=== PATIENT | male | born 1990 | race Hispanic/Latino ===

== ENCOUNTER 2019-09-27 21:34 | Emergency (ER) | payer SELFPAY ==
[2019-09-27] MEDS ORDERED: NA CHLORIDE 0.9% 1,000 ML ONE (22:10)
[2019-09-27 22:26] LABS: Absolute Lymphocytes (CBC) 3.6 K/uL (0.7-4.9); Basophils % 0.4 % (0-1.3); Hematocrit 44.8 % (39.6-49.0); Lymphocytes % 36.5 % (15.3-44.8); MPV 8.1 fL (7.6-11.3); RBC Red Blood Cell Count 5.15 M/uL (4.33-5.43)
[2019-09-27 22:41] LABS: BUN Blood Urea Nitrogen 12 mg/dL (7-18); Bicarbonate 26 mmol/L (21-32); Glucose Level 96 mg/dL (74-106); Magnesium 2.2 mg/dL (1.8-2.4); Potassium 3.2 mmol/L (3.5-5.1); Sodium Level 141 mmol/L (136-145); Troponin (Emerg Dept Use Only) < 0.02 ng/mL (0.0-0.045)
--- NOTE | 2019-09-27 23:54 | EDPHYS ---
Physician Documentation [facility] Name: Robert Spicer Age: 29 yrs Sex: Male : 1990 Arrival Date: 09/27/2019 Time: 21:35 Bed 7 Private MD: ED Physician Michael Perry HPI: 09/27 23:12 This 29 yrs old Male presents to ER via Wheelchair with complaints of Passed rn Out Prior To Arrival, Shortness Of Breath. 23:12 This 29 yrs old Male presents to ER via Wheelchair with complaints of Passed rn Out Prior To Arrival. 23:12 The patient has experienced syncope. Onset: The symptoms/episode began/occurred just rn prior to arrival. Duration: This was a single episode. Associated injury: The patient did not suffer any apparent associated injury. Current symptoms: Currently, the patient is not experiencing any symptoms. The patient has experienced a previous episode. The patient has not recently seen a physician. REports got up to use bathroom, felt lightheaded, thinks passed, out, felt generalized weakness, no focal trauma from fall, used to be on seizure meds for similar episode in past, told has epilepsy, but off medication for about a year now after slow wean and no further episodes. Family states last time this happened was told had a seizure after abnormal EEG and negative workup otherwise. NO chest pain/sob/abd pain/ vomiting/diarrhea.. Historical: - Allergies: 22:11 No Known Allergies; ea - Home Meds: 22:11 None [Active]; ea - PMHx: 22:11 sizures; ea - PSHx: 22:11 None; ea - Immunization history:: Adult Immunizations up to date. - Social history:: Smoking status: Patient/guardian denies using tobacco. - Ebola Screening: : No symptoms or risks identified at this time. - Family history:: not pertinent. - Hospitalizations: : No recent hospitalization is reported. ROS: 23:12 Constitutional: Negative for fever, chills, and weight loss, Eyes: Negative for injury, rn pain, redness, and discharge, Neck: Negative for injury, pain, and swelling, Cardiovascular: Negative for chest pain, palpitations, and edema, Respiratory: Negative for shortness of breath, cough, wheezing, and pleuritic chest pain, Abdomen/GI: Negative for abdominal pain, nausea, vomiting, diarrhea, and constipation, Back: Negative for injury and pain, : Negative for injury, bleeding, discharge, and swelling, MS/Extremity: Negative for injury and deformity, Skin: Negative for injury, rash, and discoloration, Neuro: Negative for headache, weakness, numbness, tingling Exam: 23:12 Constitutional: This is a well developed, well nourished patient who is awake, alert, rn and in no acute distress. Head/Face: Normocephalic, atraumatic. Eyes: Pupils equal round and reactive to light, extra-ocular motions intact. Lids and lashes normal. Conjunctiva and sclera are non-icteric and not injected. Cornea within normal limits. Periorbital areas with no swelling, redness, or edema. ENT: MMM Neck: Trachea midline, no thyromegaly or masses palpated, and no cervical lymphadenopathy. Supple, full range of motion without nuchal rigidity, or vertebral point tenderness. No Meningismus. Cardiovascular: Regular rate and rhythm. No pulse deficits. Respiratory: No increased work of breathing, no retractions or nasal flaring. Abdomen/GI: soft, non-tender Back: No spinal tenderness. No costovertebral tenderness. Full range of motion. MS/ Extremity: Pulses equal, no cyanosis. Neurovascular intact. Full, normal range of motion. Equal circumference. Neuro: Awake and alert, GCS 15, oriented to person, place, time, and situation. Cranial nerves II-XII grossly intact. Motor strength 5/5 in all extremities. Sensory grossly intact. Cerebellar exam normal. Vital Signs: 22:09 BP 115 / 77; Pulse 61; Resp 18; Temp 98; Pulse Ox 100% ; Weight 83.91 kg; Height 5 ft. ea 9 in. (175.26 cm); 23:30 BP 113 / 64; Pulse 59; Resp 18; Pulse Ox 100% ; ea 09/28 00:00 BP 112 / 67; Pulse 79; Resp 18; Pulse Ox 99% on R/A; ea 09/27 22:09 Body Mass Index 27.32 (83.91 kg, 175.26 cm) ea MDM: 09/27 21:41 Patient medically screened. rn 23:48 Differential Diagnosis: cardiac arrhythmia, idiopathic syncope, seizure, vasovagal rn episode. Data reviewed: vital signs, nurses notes, lab test result(s), EKG, radiologic studies, CT scan, plain films, and as a result, I will discharge patient. Counseling: I had a detailed discussion with the patient and/or guardian regarding: the historical points, exam findings, and any diagnostic results supporting the discharge/admit diagnosis, lab results, radiology results, the need for outpatient follow up, to return to the emergency department if symptoms worsen or persist or if there are any questions or concerns that arise at home. Response to treatment: the patient's symptoms have markedly improved after treatment, the patient's condition has returned to base line, patient is well hydrated. and as a result, I will discharge patient. Special discussion: I discussed with the patient/guardian in detail that at this point there is no indication for admission to the hospital. It is understood, however, that if the symptoms persist or worsen the patient needs to return immediately for re-evaluation. Based on the history and exam findings, there is no indication for further emergent testing or inpatient evaluation. I discussed with the patient/guardian the need to see the neurologist for further evaluation of the symptoms. ED course: Pt improved, near baseline, reports when has these episodes in past feels drowsy and nauseous with anxiousness. Most likely had another seizure given similar symptoms in past and off meds for 1 year. Spoke with patient regarding restarting medication/keppra and neuro f/u, patient agrees and will restart for now. Neg cardiac w/u, and no acute findings in bloodwork, no acute findings on ct head. . 09/27 21:59 Order name: Basic Metabolic Panel; Complete Time: 22:52 rn 09/27 21:59 Order name: CBC with Diff; Complete Time: 22:52 rn 09/27 21:59 Order name: CT Head Brain wo Cont rn 09/27 21:59 Order name: Magnesium; Complete Time: 22:52 rn 09/27 21:59 Order name: Troponin (emerg Dept Use Only); Complete Time: 22:52 rn 09/27 21:59 Order name: XRAY Chest (1 view) rn 09/27 21:59 Order name: EKG; Complete Time: 22:00 rn 09/27 21:59 Order name: Cardiac monitoring; Complete Time: 22: rn 09/27 21:59 Order name: EKG - Nurse/Tech; Complete Time: 22: rn 09/27 21:59 Order name: IV Saline Lock; Complete Time: 22: rn 09/27 21:59 Order name: Labs collected and sent; Complete Time: : rn 09/27 21:59 Order name: NPO; Complete Time: 22: rn 09/27 21:59 Order name: O2 Per Protocol; Complete Time: 22: rn 09/27 21:59 Order name: O2 Sat Monitoring; Complete Time: : rn Administered Medications: 22:27 Drug: NS 0.9% 1000 ml Route: IV; Rate: 1000 ml; Site: right antecubital; ea 09/28 00:13 Follow up: Response: No adverse reaction; IV Status: Completed infusion; IV Intake: ea 1000ml 09/27 23:55 Drug: Keppra 1000 mg Route: PO; ea 09/28 00:09 Follow up: Response: Medication administered at discharge. ea 09/27 23:55 Drug: Zofran 4 mg Route: IVP; Site: right antecubital; ea 09/28 00:09 Follow up: Response: Medication administered at discharge. ea Disposition: 09/27/19 23:52 Discharged to Home. Impression: Epilepsy and recurrent seizures, Syncope and collapse. - Condition is Stable. - Discharge Instructions: Seizure, Adult, Syncope. - Prescriptions for Keppra 500 mg Oral Tablet - take 1 tablet by ORAL route every 12 hours; 60 tablet. - Medication Reconciliation Form, Thank You Letter, Antibiotic Education, Prescription Opioid Use, Work release form form. - Follow up: Ketan Arriola MD; When: As needed; Reason: Further diagnostic work-up, Recheck today's complaints, Continuance of care, Re-evaluation by your physician. - Problem is new. - Symptoms have improved. Signatures: Dispatcher [employer] Michael Jimenez MD MD rn Antunez, Elena, RN RN ea Corrections: (The following items were deleted from the chart) 00:13 09/27 23:52 09/27/2019 23:52 Discharged to Home. Impression: Epilepsy and recurrent ea seizures; Syncope and collapse. Condition is Stable. Forms are Medication Reconciliation Form, Thank You Letter, Antibiotic Education, Prescription Opioid Use. Follow up: Ketan Arriola; When: As needed; Reason: Further diagnostic work-up, Recheck today's complaints, Continuance of care, Re-evaluation by your physician. Problem is new. Symptoms have improved. rn
--- NOTE | 2019-09-27 23:54 | ER ---
Nurse's Notes [facility] Name: Robert Spicer Age: 29 yrs Sex: Male : 1990 Arrival Date: 09/27/2019 Time: 21:35 Bed 7 Private MD: Diagnosis: Epilepsy and recurrent seizures;Syncope and collapse Presentation: 09/27 21:41 Presenting complaint: Patient states: He got up to go to the bathroom, when he finished aj1 he felt dizzy and passed out. When he woke up he still felt dizzy, on the way here he started feeling very anxious and breathing fast. Now he has numbness around his mouth and his hands "stiffened up" States that he had the same thing happen last year, states that he was seen in the ER but they didn't find anything. Patient's states that in [place] they did an EEG and was prescribed seizure medicines, but he was still taking those medicines the last time this happened. Transition of care: patient was not received from another setting of care. Onset of symptoms was September 27, 2019. Risk Assessment: Do you want to hurt yourself or someone else? Patient reports no desire to harm self or others. Initial Sepsis Screen: Does the patient meet any 2 criteria? No. Patient's initial sepsis screen is negative. Does the patient have a suspected source of infection? No. Patient's initial sepsis screen is negative. Care prior to arrival: None. 21:41 Method Of Arrival: Wheelchair aj1 21:41 Acuity: WILLEM 3 aj1 Historical: - Allergies: 22:11 No Known Allergies; ea - Home Meds: 22:11 None [Active]; ea - PMHx: 22:11 sizures; ea - PSHx: 22:11 None; ea - Immunization history:: Adult Immunizations up to date. - Social history:: Smoking status: Patient/guardian denies using tobacco. - Ebola Screening: : No symptoms or risks identified at this time. - Family history:: not pertinent. - Hospitalizations: : No recent hospitalization is reported. Screenin:09 Abuse screen: Denies threats or abuse. Nutritional screening: No deficits noted. ea Tuberculosis screening: No symptoms or risk factors identified. Fall Risk None identified. Assessment: 22:11 General: Appears in no apparent distress. Behavior is calm, cooperative, appropriate ea for age. Pain: Denies pain. Neuro: Level of Consciousness is awake, alert, obeys commands, Oriented to person, place, situation. Cardiovascular: Patient's skin is warm and dry. Respiratory: Airway is patent Respiratory effort is even, unlabored, Respiratory pattern is regular, symmetrical, Breath sounds are clear bilaterally. Derm: Skin is pink, warm \\T\\ dry. 23:07 Reassessment: Patient and/or family updated on plan of care and expected duration. Pain ea level reassessed. Patient is alert, oriented x 3, equal unlabored respirations, skin warm/dry/pink. 09/28 00:10 Reassessment: Patient and/or family updated on plan of care and expected duration. Pain ea level reassessed. Patient is alert, oriented x 3, equal unlabored respirations, skin warm/dry/pink. Discharge instruction given to patient, verbalized the understanding of instruction. Pt left ED ambulatory accompanied by family. Vital Signs: 09/27 22:09 BP 115 / 77; Pulse 61; Resp 18; Temp 98; Pulse Ox 100% ; Weight 83.91 kg; Height 5 ft. ea 9 in. (175.26 cm); 23:30 BP 113 / 64; Pulse 59; Resp 18; Pulse Ox 100% ; ea 09/28 00:00 BP 112 / 67; Pulse 79; Resp 18; Pulse Ox 99% on R/A; ea 09/27 22:09 Body Mass Index 27.32 (83.91 kg, 175.26 cm) ea ED Course: 09/27 21:35 Patient arrived in ED. cf2 21:41 Michael Perry MD is Attending Physician. rn 21:41 Malinda Siegel RN is Primary Nurse. ea 21:47 Triage completed. aj1 22:10 Arm band placed on right wrist. Patient placed in an exam room, on a stretcher, on ea pulse oximetry. EKG completed in triage. Results shown to MD. 22:11 Patient has correct armband on for positive identification. Bed in low position. Call ea light in reach. Side rails up X2. 22:12 Inserted saline lock: 20 gauge in right antecubital area, using aseptic technique. ea Blood collected. 22:18 CT Head Brain wo Cont In Process Unspecified. EDMS 22:27 XRAY Chest (1 view) In Process Unspecified. EDMS 23:52 Ketan Arriola MD is Referral Physician. rn 23:55 IV discontinued, intact, bleeding controlled, No redness/swelling at site. Pressure ea dressing applied. 09/28 00:11 No provider procedures requiring assistance completed. ea Administered Medications: 09/27 22:27 Drug: NS 0.9% 1000 ml Route: IV; Rate: 1000 ml; Site: right antecubital; ea 09/28 00:13 Follow up: Response: No adverse reaction; IV Status: Completed infusion; IV Intake: ea 1000ml 09/27 23:55 Drug: Keppra 1000 mg Route: PO; ea 09/28 00:09 Follow up: Response: Medication administered at discharge. ea 09/27 23:55 Drug: Zofran 4 mg Route: IVP; Site: right antecubital; ea 09/28 00:09 Follow up: Response: Medication administered at discharge. ea Intake: 00:13 IV: 1000ml; Total: 1000ml. ea Outcome: 09/27 23:52 Discharge ordered by . rn 09/28 00:11 Discharged to home ambulatory, with family. ea Condition: stable Discharge instructions given to patient, Instructed on discharge instructions, follow up and referral plans. medication usage, Demonstrated understanding of instructions, follow-up care, medications, Prescriptions given X 1. 00:13 Patient left the ED. ea Signatures: Dispatcher [employer] Anne Powers, RN JUANJO aj1 Michael Perry MD MD rn Antunez, Elena, RN RN ea Frazier, Celesta cf2
[2019-09-27] MEDS ORDERED: levETIRAcetam 500 MG TAB ONE (23:58)
[2019-09-27] MEDS ORDERED: ONDANSETRON 4 MG/2 ML VIAL ONE (23:58)
[2019-09-28 00:43] VITALS: TEMP 98
[2019-09-28 00:45] VITALS: BP 112/67; O2SAT 99
--- NOTE | 2019-09-28 06:45 | EKG ---
Test Date: 2019-09-27 Test Time: 22:06:27 Environmental Marketer: TIERRA MEASUREMENT RESULTS: Intervals: Rate: 60 MS: 150 QRSD: 98 QT: 426 QTc: 426 [place]: P: -1 MS: 150 QRS: 6 T: 2 INTERPRETIVE STATEMENTS: Normal sinus rhythm Incomplete right bundle branch block Borderline ECG No previous ECG available for comparison Electronically Signed On 09-28-19 06:44:56 VOCATIONAL DIRECTOR by Jeanmarie Harry
--- NOTE | 2019-09-28 07:05 | RAD REPORT ---
EXAM DESCRIPTION: RAD - Chest Single View - 09/27/2019 10:28 pm CLINICAL HISTORY: Syncope, seizure, shortness of breath COMPARISON: None. TECHNIQUE: AP portable chest image was obtained 2223 hours . FINDINGS: Lungs are clear. Heart and vasculature are normal. No measurable pleural effusion and no p neumothorax. No acute bony abnormality seen. No acute aortic findings suspected. IMPRESSION: No acute cardiopulmonary process.
--- NOTE | 2019-09-28 10:55 | RAD REPORT ---
EXAM DESCRIPTION: CT - Head Brain Wo Cont - 09/28/2019 4:12 am CLINICAL HISTORY: 29 years Male syncope vs seizure TECHNIQUE: Contiguous axial CT images obtained through the brain without IV contrast. Coronal and sa gittal reformats also provided. This CT exam was performed according to our departmental dose-optimization program, which includes on e or more of the following dose reduction techniques: automated exposure control, adjustment of the m A and/or kV according to patient size, and/or use of iterative reconstruction technique. COMPARISON: No prior exams provided for comparison. FINDINGS: There is no intracranial hemorrhage, extra-axial collection, or acute transcortical infarc tion. The ventricles are normal in size and contour without mass-effect or midline shift. Osseous structures are normal. Mild ethmoid sinusitis. The paranasal sinuses and mastoid air cells ar e otherwise clear. IMPRESSION: Mild ethmoid sinusitis. No other acute intracranial abnormalities. Electronically signed by: Camelia Kulkarni MD 09/27/2019 10:48 PM KINESEOLOGIST Due to temporary technical issues with the PACS/Fluency reporting system, reports are being signed by the in house radiologist as a courtesy to ensure prompt reporting. The interpreting radiologist is f ully responsible for the content of the report.
== END 2019-09-28 00:13 | disposition home or self-care (01) ==
LOC: ER 21:34
DX: G40.802 Other epilepsy, not intractable, without status epilepticus (principal)
CPT/HCPCS: 36415; 70450; 71045; 80048; 83735; 84484; 85025; 93005; 96361; 96374; 99284; J2405; J7030